=== PATIENT | female | born 1935 | race Caucasian/White ===

== ENCOUNTER 2019-04-09 12:45 | Emergency (ER) | payer MEDICARE ==
[~2019-04-09] VITALS: Ht 157.5 cm; Wt 56.0 kg
--- NOTE | 2019-04-09 13:05 | NUR ---
PT STATES SHE EXPERIENCED SOB & DIZZINESS X 4 DAYS 1 WEEK AGO. WAS AT PCP OFFICE TODAY FOR LAST WEEK'S SX. DENIES SX CURRENTLY. DENIES CARDIAC & REPS HISTORY. PT ADAMENT ABOUT GOING HOME TODAY. CARDIAC & VS MONITORING EQUIPMENT APPLIED. EKG STRIP PROVIDED BY EMS: STRIP LISTS 44 YR OLD MALE; UNSURE IF STRIP IS PATIENT'S.
--- NOTE | 2019-04-09 13:15 | NUR ---
DR NÚÑEZ BS FOR EXAM.
--- NOTE | 2019-04-09 13:48 | NUR ---
pt niece: Jami Lagunas [phone]
[2019-04-09 14:12] LABS: BASOPHILS # (AUTO) 0.05 x10^3/uL (0-0.1); BASOPHILS % (AUTO) 1 % (0-1); EOSINOPHILS # (AUTO) 0.15 x10^3/uL (0-0.4); EOSINOPHILS % (AUTO) 2 % (1-7); LYMPHOCYTES % (AUTO) 19 % (22-44); MD NO; MEAN CORPUSCULAR HEMOGLOBIN 32.8 pg (27.0-34.8); MEAN CORPUSCULAR HGB CONC 33.7 g/dL (32.4-35.8); MEAN CORPUSCULAR VOLUME 97.4 fL (80-100); MEAN PLATELET VOLUME 9.6 fL (7.4-10.4); MONOCYTES # (AUTO) 0.59 x10^3/uL (0.2-0.8); MONOCYTES % (AUTO) 10 % (2-9); NEUTROPHILS # (AUTO) 4.19 x10^3/uL (1.8-6.8); NEUTROPHILS % (AUTO) 68 % (42-75); PLATELET COUNT 188 x10^3/uL (130-400); RED BLOOD COUNT 4.19 x10^6/uL (3.82-5.3); RED CELL DISTRIBUTION WIDTH 13.1 % (9.6-15.2)
[2019-04-09 14:20] VITALS: BP 176/86
[2019-04-09 14:20] LABS: ALBUMIN 3.4 g/dL (3.4-5.0); ANION GAP 9 mmol/L (5-15); CALCIUM 8.8 mg/dL (8.5-10.1); CHLORIDE 101 mmol/L (98-107)
--- NOTE | 2019-04-09 14:21 | NUR ---
PT AMBULATED TO BR WITH STEADY GAIT. BACK TO [facility] NOTED
--- NOTE | 2019-04-09 14:29 | NUR ---
ST DEPRESSION NOTED ON MONITOR, PT AFLUTTER ON EKG, DR NÚÑEZ MADE AWARE, PT WITH NO C/P CP
[2019-04-09 14:31] LABS: ALANINE AMINOTRANSFERASE 26 U/L (12-78); ALKALINE PHOSPHATASE 46 U/L (45-117); BILIRUBIN,TOTAL 0.7 mg/dL (0.2-1.0); CREATININE 0.94 mg/dL (0.55-1.02)
--- NOTE | 2019-04-09 15:06 | NUR ---
Patient/Caregiver given discharge instructions and they have confirmed that they understand the instructions. Patient ambulatory with steady gait.
== END 2019-04-09 15:21 | disposition home or self-care (01) ==
LOC: ED 15:00
DX: I48.92 Unspecified atrial flutter (principal); I10 Essential (primary) hypertension; E03.9 Hypothyroidism, unspecified
CPT/HCPCS: 36415; 80053; 84443; 85025; 93005; 99284

== ENCOUNTER 2019-05-12 09:54 | Day surgery (SDC) | payer MEDICARE ==
[~2019-05-12] VITALS: Ht 157.5 cm; Wt 57.3 kg
[2019-05-12 10:43] VITALS: BP 147/75
[2019-05-12 11:09] LABS: ANION GAP 7 mmol/L (5-15); CALCIUM 8.9 mg/dL (8.5-10.1); CHLORIDE 102 mmol/L (98-107)
[2019-05-12] MEDS ORDERED: PROPOFOL 10 MG/ML, 20ML ONE (11:58)
[2019-05-12] MEDS ORDERED: LOSA25TA25 PO (12:19)
[2019-05-12] MEDS ORDERED: LEVO125T PO (12:19)
[2019-05-12] MEDS ORDERED: DIPH0.5V3 IM (12:19)
[2019-05-12] MEDS ORDERED: POTA2TAB8 PO (12:19)
[2019-05-12] MEDS ORDERED: MAGN400T36 PO (12:19)
[2019-05-12] MEDS ORDERED: ASPI-496 PO (12:19)
[2019-05-12] MEDS ORDERED: CYAN1TAB29 PO (12:19)
[2019-05-12] MEDS ORDERED: TRAM50TA2 PO (12:19)
[2019-05-12] MEDS ORDERED: APIX2.5T PO (12:19)
[2019-05-12] MEDS ORDERED: EZET10TA70 PO (12:19)
[2019-05-12] MEDS ORDERED: OMEG-157 PO (12:19)
[2019-05-12] MEDS ORDERED: [UNRECOGNIZED DRUG - CODE] PO (12:19)
[2019-05-12] MEDS ORDERED: UBID100C41 PO (12:19)
== END 2019-05-12 14:40 | disposition home or self-care (01) ==
LOC: CACL 09:54
PROVIDERS: ATTEND Internal Medicine Cardiovascular Disease
DX: I48.92 Unspecified atrial flutter (principal); I48.91 Unspecified atrial fibrillation; I10 Essential (primary) hypertension; E78.5 Hyperlipidemia, unspecified; E03.9 Hypothyroidism, unspecified; Z79.82 Long term (current) use of aspirin; Z79.01 Long term (current) use of anticoagulants; Z79.890 Hormone replacement therapy; Z79.899 Other long term (current) drug therapy; Z88.5 Allergy status to narcotic agent; Z98.890 Other specified postprocedural states; Z82.49 Family history of ischemic heart disease and other diseases of the circulatory system
CPT/HCPCS: 36415; 80048; 92960; 93005; J2704

== ENCOUNTER → 2019-05-26 | Outpatient (CLI) | payer MEDICARE ==
[~2019-05-26] MED LIST: APIX2.5T PO; ASPI-496 PO; CYAN1TAB29 PO; DIPH0.5V3 IM; EZET10TA70 PO; LEVO125T PO; LOSA25TA25 PO; MAGN400T36 PO; OMEG-157 PO; POTA2TAB8 PO; TRAM50TA2 PO; UBID100C41 PO; [UNRECOGNIZED DRUG - CODE] PO
== END | disposition home or self-care (01) ==
LOC: CVU 12:12
PROVIDERS: ATTEND Registered Nurse
DX: I08.3 Combined rheumatic disorders of mitral, aortic and tricuspid valves (principal); I10 Essential (primary) hypertension; I48.92 Unspecified atrial flutter
CPT/HCPCS: 93306

== ENCOUNTER → 2019-08-21 | Outpatient (CLI) | payer MEDICARE | END | disposition home or self-care (01) | LOC: CFH 13:15 | PROVIDERS: ATTEND Internal Medicine Cardiovascular Disease | DX: I08.3 Combined rheumatic disorders of mitral, aortic and tricuspid valves (principal); I11.9 Hypertensive heart disease without heart failure; I48.0 Paroxysmal atrial fibrillation | CPT/HCPCS: 93306 ==

== ENCOUNTER → 2020-05-10 | Outpatient (CLI) | payer MEDICARE ==
[~2020-05-10] MED LIST changes: +REGADENOSON 0.4 MG/5 ML SYRINGE ONE; +VERA240C2 PO
== END | disposition home or self-care (01) ==
LOC: RAD 12:09
PROVIDERS: ATTEND Internal Medicine Cardiovascular Disease
DX: I48.0 Paroxysmal atrial fibrillation (principal); I10 Essential (primary) hypertension; R07.89 Other chest pain
CPT/HCPCS: 78452; 93017; A9502; J2785